=== PATIENT | female | born 1925 | race Caucasian/White ===

== ENCOUNTER 2016-09-28 08:26 | Inpatient (IN) | payer MEDICARE ==
[2016-09-28 09:46] LABS: HEMATOCRIT 41.2 % (36.0-47.0); HEMOGLOBIN 13.7 g/dL (12.0-15.5); HGB HCT DIFFERENCE -0.1; MEAN CORPUSCULAR HEMOGLOBIN 30.2 pg (27.0-33.4); MEAN CORPUSCULAR HGB CONC 33.3 g/dL (32.0-36.0); MEAN CORPUSCULAR VOLUME 91 fl (80-97); RED BLOOD COUNT 4.55 10^6/uL (3.72-5.28); RED CELL DISTRIBUTION WIDTH 13.7 % (11.5-14.0)
[2016-09-28 09:50] LABS: VENOUS BLOOD BASE EXCESS -1.2 mmol/L; VENOUS BLOOD HCO3 24.1 mmol/L (20-32); VENOUS BLOOD PCO2 42.3 mmHg (35-63); VENOUS BLOOD PH 7.37 (7.30-7.42)
[2016-09-28 09:52] LABS: PROTHROMBIN TIME 24.3 SEC (11.4-15.4)
--- NOTE | 2016-09-28 10:01 | EKG REPORT ---
SEVERITY:- ABNORMAL ECG - ATRIAL FIBRILLATION, V-RATE 97-183 VENTRICULAR PREMATURE COMPLEX RIGHT BUNDLE BRANCH BLOCK : Confirmed by: Jasvir Beltran 28-Sep-2016 10:00:52
[2016-09-28 10:08] LABS: ALANINE AMINOTRANSFERASE 31 U/L (9-52); ALBUMIN 3.7 g/dL (3.5-5.0); ALKALINE PHOSPHATASE 101 U/L (38-126); ANION GAP 12 (5-19); ASPARTATE AMINO TRANSFERASE 23 U/L (14-36); BILIRUBIN,DIRECT 0.2 mg/dL (0.0-0.4); BILIRUBIN,TOTAL 0.9 mg/dL (0.2-1.3); BLOOD UREA NITROGEN 27 mg/dL (7-20); CARBON DIOXIDE 25 mmol/L (22-30); CHLORIDE 104 mmol/L (98-107); CREATININE RESULT 0.62 mg/dL (0.52-1.25); GLUCOSE 138 mg/dL (75-110); POTASSIUM 4.2 mmol/L (3.6-5.0); SODIUM 140.8 mmol/L (137-145); TOTAL PROTEIN 6.5 g/dL (6.3-8.2)
[2016-09-28 10:11] LABS: BASOPHILS % (MANUAL) 0 % (0-2); EOSINOPHILS % (MANUAL) 0 % (0-6); LYMPHOCYTES % (MANUAL) 4 % (13-45); TOTAL CELLS COUNTED 100
[2016-09-28 10:12] LABS: HELMET CELLS SLIGHT; OVALOCYTES SLIGHT; POIKILOCYTOSIS 1+
[2016-09-28] MEDS ORDERED: NORMAL SALINE 1000 ML 1,000 ML IV ONE (10:19)
[2016-09-28] MEDS ORDERED: NORMAL SALINE 250 ML IV ONE (10:19)
[2016-09-28] MEDS ORDERED: ERTAPENEM SODIUM INJ 1 GM VIAL IV ONE (10:19)
--- NOTE | 2016-09-28 10:25 | ER Document Report ---
ED General - General Chief Complaint: Fall Stated Complaint: FALL;BODY PAIN Mode of Arrival: Medic Information source: Patient, Relative Notes: 82-year-old female history of dementia was found having rolled out of bed between 5:58 AM this morning. There are no guardrail is on the bed itself. Patient herself denies any specific complaints except for left hip pain. Patient always has chronic left hip pain. It is noted patient has been treated with 2 courses of antibiotics for urinary tract infection. TRAVEL OUTSIDE OF THE [place] IN LAST 30 DAYS: No - HPI Onset: Just prior to arrival Onset/Duration: Sudden Quality of pain: Achy Severity: Mild Pain Level: 1 Associated symptoms: Body/muscle aches Exacerbated by: Movement Relieved by: Denies Similar symptoms previously: Yes Recently seen / treated by doctor: Yes - Related Data Allergies/Adverse Reactions: Sulfa (Sulfonamide Antibiotics) Allergy (Verified 09/28/16 08:34) Past Medical History - Social History Smoking Status: Never Smoker Cigarette use (# per day): No Chew tobacco use (# tins/day): No Smoking Education Provided: No Frequency of alcohol use: None Drug Abuse: None Family History: Reviewed & Not Pertinent - Past Medical History Cardiac Medical History: Reports: Hx Atrial Fibrillation, Hx Hypertension Neurological Medical History: Reports: Hx Cerebrovascular Accident Musculoskeltal Medical History: Reports Hx Arthritis Psychiatric Medical History: Reports: Hx Dementia Traumatic Medical History: Reports: Hx Fractures Past Surgical History: Reports: Hx Orthopedic Surgery - left hip replaced - Immunizations Hx Diphtheria, Pertussis, Tetanus Vaccination: Yes - unknown date Review of Systems - Review of Systems Notes: REVIEW OF SYSTEMS: CONSTITUTIONAL : Denies fever, chills, or sweats. Denies recent illness. EENT: Denies eye, ear, throat, or mouth pain or symptoms. Denies nasal or sinus congestion or discharge. Denies throat, tongue, or mouth swelling or difficulty swallowing. CARDIOVASCULAR: Denies chest pain. Denies palpitations or racing or irregular heart beat. Denies ankle edema. RESPIRATORY: Denies cough, cold, or chest congestion. Denies shortness of breath, difficulty breathing, or wheezing. GASTROINTESTINAL: Denies abdominal pain or distention. Denies nausea, vomiting , or diarrhea. Denies blood in vomitus, stools, or per rectum. Denies black, tarry stools. Denies constipation. GENITOURINARY: Denies difficulty urinating, painful urination, burning, frequency, blood in urine, or discharge. FEMALE GENITOURINARY: Denies vaginal bleeding, heavy or abnormal periods, irregular periods. Denies vaginal discharge or odor. MUSCULOSKELETAL: Denies back or neck pain or stiffness. Denies joint pain or swelling. SKIN: Skin tears HEMATOLOGIC : Denies easy bruising or bleeding. LYMPHATIC: Denies swollen, enlarged glands. NEUROLOGICAL: Denies confusion or altered mental status. Denies passing out or loss of consciousness. Denies dizziness or lightheadedness. Denies headache. Denies weakness or paralysis or loss of use of either side. Denies problems with gait or speech. Denies sensory loss, numbness, or tingling. Denies seizures. PSYCHIATRIC: Denies anxiety or stress. Denies depression, suicidal ideation, or homicidal ideation. ALL OTHER SYSTEMS REVIEWED AND NEGATIVE. Dictation was performed using [employer] voice recognition software PHYSICAL EXAMINATION: GENERAL: Frail elderly female no acute distress HEAD: Atraumatic, normocephalic. EYES: Pupils equal round and reactive to light, extraocular movements intact, conjunctiva are normal. ENT: Nares patent, oropharynx clear without exudates. Moist mucous membranes. NECK: Normal range of motion, supple without lymphadenopathy LUNGS: Breath sounds clear to auscultation bilaterally and equal. No wheezes rales or rhonchi. HEART: Regular rate and rhythm without murmurs ABDOMEN: Soft, nontender, nondistended abdomen. No guarding, no rebound. No masses appreciated. Female : deferred Musculoskeletal: mild left hip pain NEUROLOGICAL: Cranial nerves grossly intact. Normal speech, normal gait. Normal sensory, motor exams PSYCH: Normal mood, normal affect. SKIN: Superficial skin tears bilateral elbows left worse than right Physical Exam - Vital signs Vitals: Resp Pulse Ox 18 112 H 09/28/16 08:32 09/28/16 08:32 Course - Re-evaluation Re-evalutation: 09/28/16 10:31 Patient is probably septic, she has been treated unsuccessfully for UTI. I will start the patient on antibiotics per microbiology reports, lab results pending 09/28/16 13:22 patient noted uti, already started on fluids, antibiotics, will admit ot the [facility] service - Vital Signs Vital signs: Temp Pulse Resp BP Pulse Ox 113 H 18 147/80 H 94 09/28/16 08:35 09/28/16 08:35 09/28/16 08:35 09/28/16 08:35 - Laboratory Result Diagrams: 09/28/16 09:30 09/28/16 09:30 Laboratory results interpreted by me: 09/28/16 09/28/16 09/28/16 09:30 09:30 09:30 WBC 16.0 H D Seg Neuts % (Manual) 91 H Lymphocytes % (Manual) 4 L Abs Neuts (Manual) 14.6 H PT 24.3 H BUN 27 H Glucose 138 H Lactic Acid Urine Ketones Urine Nitrite Ur Leukocyte Esterase 09/28/16 09/28/16 09:30 12:37 WBC Seg Neuts % (Manual) Lymphocytes % (Manual) Abs Neuts (Manual) PT BUN Glucose Lactic Acid 2.5 H Urine Ketones TRACE H Urine Nitrite POSITIVE H Ur Leukocyte Esterase TRACE H - Diagnostic Test Radiology reviewed: Image reviewed, Reports reviewed Critical Care Note - Critical Care Note Total time excluding time spent on procedures (mins): 37 Comments: 37 minutes of critical care time spent in direct contact evaluating and reevaluating the patient, treating symptoms, reviewing labs and studies and speaking with family and consultants excluding any procedures Discharge - Discharge Clinical Impression: Skin tear Sepsis Qualifiers: Sepsis type: sepsis due to unspecified organism Qualified Code(s): A41.9 - Sepsis, unspecified organism Urinary tract infection Qualifiers: Urinary tract infection type: acute cystitis Hematuria presence: without hematuria Qualified Code(s): N30.00 - Acute cystitis without hematuria Fall Qualifiers: Encounter type: initial encounter Qualified Code(s): W19.XXXA - Unspecified fall, initial encounter Condition: Stable Disposition: ADMITTED INPATIENT Admitting Provider: Hospitalist Unit Admitted: Telemetry
[2016-09-28] MEDS ORDERED: MORPHINE SULFATE 10 MG/ML INJ IV ONE (10:42)
[2016-09-28 11:03] LABS: CREATINE KINASE MB 1.55 ng/mL (<4.55)
[2016-09-28 11:04] LABS: TROPONIN I < 0.012 ng/mL
[2016-09-28 13:14] LABS: APPEARANCE,URINE CLEAR; BILIRUBIN,URINE NEGATIVE (NEGATIVE); GLUCOSE, URINE NEGATIVE (NEGATIVE); KETONES,URINE TRACE mg/dL (NEGATIVE); LEUKOCYTE ESTERASE,URINE TRACE (NEGATIVE); NITRITE,URINE POSITIVE (NEGATIVE); PROTEIN,URINE NEGATIVE (NEGATIVE); URINE SPECIFIC GRAVITY 1.009; UROBILINOGEN,URINE NEGATIVE mg/dL (<2.0)
[2016-09-28] MEDS ORDERED: ONDANSETRON HCL INJ/PF 4 MG/2 ML SDV IV PRN (15:56)
[2016-09-28] MEDS ORDERED: DILTIAZEM HCL 30 MG TABLET PO ONE (16:00)
--- NOTE | 2016-09-28 16:17 | PDOC H&P ---
History of Present Illness Admission Date/PCP: 09/28/16 13:38 KEREN RAMSEY MD Patient complains of: fall History of Present Illness: OPAL MAE is a 89 year old female, with history of advanced dementia, atrial fibrillation, frequent urinary tract infection, ESBL Escherichia coli urinary tract infection, brought to the hospital as she was found on the floor at home by her family. Due to underlying advanced dementia, the patient is unable to provide history. Information unobtainable from the patient. Information obtained, from her family, from the emergency room record, from old records in the hospital. Patient apparently was being brought by the family with their trips. They do not live in town and is in an RV. They were in [facility], apparently she was found on the floor in the RV without any loss in consciousness. Reportedly the patient is complaining of pain and therefore the patient was brought to the hospital. In the emergency room, the patient's heart rate was elevated, urinalysis was abnormal, lactic acid mildly elevated, she is hypothermic with a temperature of 96.2F The patient was given intravenous fluids, intravenous Invanz was given and patient was referred for admission. No other information available at this time. Past Medical History Cardiac Medical History: Reports: Atrial Fibrillation, Hypertension Neurological Medical History: Reports: Ischemic CVA Musculoskeltal Medical History: Reports: Arthritis Psychiatric Medical History: Reports: Dementia Infectious Medical History: Reports: Other - Recurrent UTI, ESBL Escherichia coli UTI Past Surgical History Past Surgical History: Reports: Orthopedic Surgery - left hip replaced Social History Lives with: Family Smoking Status: Never Smoker Frequency of Alcohol Use: None Hx Recreational Drug Use: No Drugs: None Family History Family History: Other - Unobtainable from the patient, unknown at this time Parental Family History Reviewed: No - unobtainable from the patient Children Family History Reviewed: Unknown Sibling(s) Family History Reviewed.: Unknown Medication/Allergy Home Medications: Diltiazem HCl [Cartia Xt] 180 mg PO DAILY 09/28/16 Lisinopril [Prinivil 5 mg Tablet] 5 mg PO DAILY 09/28/16 Warfarin Sodium [Coumadin 1 mg Tablet] 1.5 mg PO TUTHSA@219909/28/16 Warfarin Sodium [Coumadin 1 mg Tablet] 2 mg PO SUMOWEFR@219909/28/16 Allergies/Adverse Reactions: Sulfa (Sulfonamide Antibiotics) Allergy (Verified 09/28/16 14:33) Review of Systems ROS unobtainable: Due to mental status Integumentary: PRESENT: other - Staff reports no decubitus ulcers but redness on the buttocks Physical Exam Vital Signs: Temp Pulse Resp BP Pulse Ox 96.8 F L 113 H 16 113/62 96 09/28/16 13:41 09/28/16 08:35 09/28/16 13:04 09/28/16 13:04 09/28/16 13:04 General appearance: PRESENT: no acute distress, thin Head exam: PRESENT: atraumatic, normocephalic Eye exam: PRESENT: conjunctiva pink, EOMI, PERRLA - Sluggish. ABSENT: scleral icterus Ear exam: PRESENT: normal external ear exam. ABSENT: drainage Mouth exam: PRESENT: dry mucosa, tongue midline, other - Neck contracted Teeth exam: PRESENT: other - Dental prostheses Throat exam: ABSENT: post pharyngeal erythema, tonsillar erythema Neck exam: ABSENT: carotid bruit, JVD, lymphadenopathy, thyromegaly Respiratory exam: PRESENT: clear to auscultation chil[place] - Poor inspiratory and expiratory effort. ABSENT: rales, rhonchi, wheezes Cardiovascular exam: PRESENT: irregular rhythm, +S1, +S2, tachycardia. ABSENT: diastolic murmur, gallop, rubs, systolic murmur Pulses: PRESENT: normal dorsalis pedis pul Vascular exam: PRESENT: normal capillary refill GI/Abdominal exam: PRESENT: hypoactive bowel sounds, soft, tenderness - Mild discomfort diffusely. ABSENT: distended, guarding, mass, organolmegaly, rebound Rectal exam: PRESENT: deferred Extremities exam: PRESENT: other - Trace lower extremity edema, contraction deformity noted. ABSENT: calf tenderness, clubbing Neurological exam: PRESENT: alert, awake, other - Occasionally able to follow command Psychiatric exam: ABSENT: agitated Focused psych exam: ABSENT: restlessness Skin exam: PRESENT: dry, warm, other - Multiple bruises and ecchymosis both upper extremity. ABSENT: cyanosis, rash Results Laboratory Results: 09/28/16 13:57 Lactic Acid 2.0 Impressions: Chest X-Ray 09/28/16 09:04 IMPRESSION: COPD. NO ACUTE RADIOGRAPHIC FINDING IN THE CHEST. Hip X-Ray 09/28/16 09:04 IMPRESSION: No acute findings. Knee X-Ray 09/28/16 10:25 IMPRESSION: NO RADIOGRAPHIC EVIDENCE OF ACUTE INJURY. Assessment & Plan - Diagnosis (1) Sepsis Qualifiers: Sepsis type: sepsis due to unspecified organism Qualified Code(s): A41.9 - Sepsis, unspecified organism Is this a current diagnosis for this admission?: Yes (2) UTI (urinary tract infection) Qualifiers: Urinary tract infection type: acute cystitis Hematuria presence: without hematuria Qualified Code(s): N30.00 - Acute cystitis without hematuria Is this a current diagnosis for this admission?: Yes (3) Atrial fibrillation with RVR Is this a current diagnosis for this admission?: Yes (4) Warfarin-induced coagulopathy Is this a current diagnosis for this admission?: Yes (5) Essential hypertension Is this a current diagnosis for this admission?: Yes (6) Dementia Qualifiers: Dementia type: unspecified type Dementia behavioral disturbance: without behavioral disturbance Qualified Code(s): F03.90 - Unspecified dementia without behavioral disturbance Is this a current diagnosis for this admission?: Yes (7) Osteoarthritis Qualifiers: Osteoarthritis location: unspecified site Osteoarthritis type: unspecified Qualified Code(s): M19.90 - Unspecified osteoarthritis, unspecified site Is this a current diagnosis for this admission?: Yes (8) History of stroke Is this a current diagnosis for this admission?: Yes - Time Time Spent: 50 to 70 Minutes - Inpatient Certification Based on my medical assessment, after consideration of the patient's comorbidities, presenting symptoms, or acuity I expect that the services needed warrant INPATIENT care.: Yes I certify that my determination is in accordance with my understanding of Medicare's requirements for reasonable and necessary INPATIENT services [42 CFR 412.3e].: Yes Medical Necessity: Significant Comorbidiites Make Outpatient Treatment Too Risky , Need For IV Fluids, Need for IV Antibiotics, Risk of Complication if Not Cared For in Hospital Post Hospital Care: D/C Last Puller Documentation - Plan Summary Plan Summary: We will admit the patient to telemetry. We will hydrate the patient with normal saline, I will continue the Cardizem but decrease the dose. Continue anticoagulation and monitor PT/INR. Culture of the blood and urine. Begin intravenous antibiotics with Invanz. We will check a B12 level, as well as thyroid function test. Further dosing depends on initial evaluation as outlined above. Apply barrier cream to the skin and apply decubitus precautions.
[2016-09-28] MEDS: DOCUSATE SODIUM 100 MG CAPSULE PO SCH (18:48)
[2016-09-28] MEDS ORDERED: ERTAPENEM SODIUM INJ 1 GM VIAL ONE (18:59)
[2016-09-28] MEDS ORDERED: NORMAL SALINE 500 ML IV ONE (19:00)
[2016-09-28] MEDS: ERTAPENEM SODIUM 1 GM in NORMAL SALINE 50 ML IV SCH (19:13)
[2016-09-28] MEDS: ACETAMINOPHEN 325 MG TABLET PO PRN (20:00)
[2016-09-28] MEDS: DILTIAZEM HCL 30 MG TABLET PO SCH (20:03)
[2016-09-28] MEDS: NORMAL SALINE 1000 ML 1,000 ML IV PRN (22:09)
[2016-09-28] MEDS: WARFARIN SODIUM 2 MG TABLET PO SCH (22:46)
[2016-09-29] MEDS: DILTIAZEM HCL 30 MG TABLET PO SCH ×4 (03:22→22:29)
[2016-09-29] MEDS: LANSOPRAZOLE 30 MG TAB.RAP.DR PO SCH (05:38)
[2016-09-29 07:41] LABS: HEMATOCRIT 33.8 % (36.0-47.0); HEMOGLOBIN 11.7 g/dL (12.0-15.5); HGB HCT DIFFERENCE 1.3; MEAN CORPUSCULAR HEMOGLOBIN 30.9 pg (27.0-33.4); MEAN CORPUSCULAR HGB CONC 34.5 g/dL (32.0-36.0); MEAN CORPUSCULAR VOLUME 90 fl (80-97); RED BLOOD COUNT 3.77 10^6/uL (3.72-5.28); RED CELL DISTRIBUTION WIDTH 13.7 % (11.5-14.0); WHITE BLOOD COUNT 9.2 10^3/uL (4.0-10.5)
[2016-09-29 08:18] LABS: ANION GAP 8 (5-19); BLOOD UREA NITROGEN 25 mg/dL (7-20); CALCIUM 7.9 mg/dL (8.4-10.2); CARBON DIOXIDE 22 mmol/L (22-30); CHLORIDE 112 mmol/L (98-107); GLUCOSE 79 mg/dL (75-110); POTASSIUM 3.8 mmol/L (3.6-5.0); SODIUM 141.9 mmol/L (137-145)
[2016-09-29 08:52] LABS: PROTHROMBIN TIME 44.4 SEC (11.4-15.4)
[2016-09-29] MEDS: ACETAMINOPHEN 325 MG TABLET PO PRN (09:00)
[2016-09-29] MEDS: NORMAL SALINE 1000 ML 1,000 ML IV PRN ×2 (09:08→22:48)
[2016-09-29] MEDS: DOCUSATE SODIUM 100 MG CAPSULE PO SCH ×2 (09:11→18:08)
[2016-09-29 09:17] LABS: THYROID STIMULATING HORMONE < 0.02 uIU/mL (0.47-4.68)
--- NOTE | 2016-09-29 09:49 | PDOC PROGRESS REPORT ---
Subjective Progress Note for:: 09/29/16 Subjective:: Patient is less agitated today. Tachycardia improved. No reported temperature spikes, respiratory distress, diarrhea. Heart rate still uncontrolled but improved. Patient with advanced dementia. Physical Exam Vital Signs: Temp Pulse Resp BP Pulse Ox 97.9 F 102 H 19 115/69 97 09/29/16 07:28 09/29/16 07:28 09/29/16 07:28 09/29/16 07:28 09/29/16 07:28 Intake & Output 09/28/16 09/29/16 09/30/16 06:59 06:59 06:59 Intake Total 1044 Output Total 500 Balance 544 Weight 53 kg General appearance: PRESENT: no acute distress, thin Head exam: PRESENT: normocephalic Eye exam: PRESENT: EOMI Mouth exam: PRESENT: moist, neck supple Neck exam: ABSENT: JVD Respiratory exam: PRESENT: clear to auscultation chilango. ABSENT: rhonchi, wheezes Cardiovascular exam: PRESENT: irregular rhythm. ABSENT: gallop GI/Abdominal exam: PRESENT: soft. ABSENT: tenderness Extremities exam: ABSENT: pedal edema Neurological exam: PRESENT: alert, awake Skin exam: PRESENT: dry, warm. ABSENT: cyanosis Results Laboratory Results: 09/29/16 06:44 09/29/16 06:44 09/29/16 09/29/16 09/29/16 06:44 06:44 06:44 WBC 9.2 RBC 3.77 Hgb 11.7 L Hct 33.8 L MCV 90 MCH 30.9 MCHC 34.5 RDW 13.7 Plt Count 169 Sodium 141.9 Potassium 3.8 Chloride 112 H Carbon Dioxide 22 Anion Gap 8 BUN 25 H Creatinine 0.60 Est GFR ( Amer) > 60 Est GFR (Non-Af Amer) > 60 Glucose 79 Calcium 7.9 L Vitamin B12 637.0 TSH < 0.02 L Free T4 2.41 H Impressions: Chest X-Ray 09/28/16 09:04 IMPRESSION: COPD. NO ACUTE RADIOGRAPHIC FINDING IN THE CHEST. Hip X-Ray 09/28/16 09:04 IMPRESSION: No acute findings. Knee X-Ray 09/28/16 10:25 IMPRESSION: NO RADIOGRAPHIC EVIDENCE OF ACUTE INJURY. Assessment & Plan - Diagnosis (1) Sepsis Qualifiers: Sepsis type: sepsis due to unspecified organism Qualified Code(s): A41.9 - Sepsis, unspecified organism Is this a current diagnosis for this admission?: Yes (2) UTI (urinary tract infection) Qualifiers: Urinary tract infection type: acute cystitis Hematuria presence: without hematuria Qualified Code(s): N30.00 - Acute cystitis without hematuria Is this a current diagnosis for this admission?: Yes (3) Atrial fibrillation with RVR Is this a current diagnosis for this admission?: Yes (4) Warfarin-induced coagulopathy Is this a current diagnosis for this admission?: Yes (5) Essential hypertension Is this a current diagnosis for this admission?: Yes (6) Dementia Qualifiers: Dementia type: unspecified type Dementia behavioral disturbance: without behavioral disturbance Qualified Code(s): F03.90 - Unspecified dementia without behavioral disturbance Is this a current diagnosis for this admission?: Yes (7) Osteoarthritis Qualifiers: Osteoarthritis location: unspecified site Osteoarthritis type: unspecified Qualified Code(s): M19.90 - Unspecified osteoarthritis, unspecified site Is this a current diagnosis for this admission?: Yes (8) History of stroke Is this a current diagnosis for this admission?: Yes - Time Time Spent with patient: 25-34 minutes - Plan Summary Plan Summary: Continue current antibiotics, gentle hydration. We will begin metoprolol, continue Cardizem, discontinue lisinopril. INR is supratherapeutic, we will hold Coumadin, recheck PT/INR in the morning. Continue supportive care.
[2016-09-29] MEDS ORDERED: ERTAPENEM SODIUM INJ 1 GM VIAL IV SCH (10:00)
[2016-09-29] MEDS ORDERED: METOPROLOL TARTRATE 25 MG TABLET PO SCH (10:00)
[2016-09-29] MEDS ORDERED: PROPRANOLOL HCL 10 MG TABLET PO ONE (11:45)
[2016-09-29] MEDS: PROPRANOLOL HCL 10 MG TABLET PO SCH ×2 (14:30→22:30)
[2016-09-29] MEDS: ERTAPENEM SODIUM 1 GM in NORMAL SALINE 50 ML IV SCH (18:08)
[2016-09-30] MEDS: DILTIAZEM HCL 30 MG TABLET PO SCH ×2 (03:51→09:08)
[2016-09-30 05:00] LABS: APPEARANCE,URINE TURBID; BILIRUBIN,URINE NEGATIVE (NEGATIVE); CALCIUM OXALATE CRYSTALS,URINE MANY /HPF; GLUCOSE, URINE NEGATIVE (NEGATIVE); KETONES,URINE TRACE mg/dL (NEGATIVE); LEUKOCYTE ESTERASE,URINE LARGE (NEGATIVE); NITRITE,URINE NEGATIVE (NEGATIVE); PROTEIN,URINE NEGATIVE (NEGATIVE); URINE SPECIFIC GRAVITY 1.009; UROBILINOGEN,URINE NEGATIVE mg/dL (<2.0)
[2016-09-30 05:46] LABS: HEMATOCRIT 36.6 % (36.0-47.0); HEMOGLOBIN 12.4 g/dL (12.0-15.5); HGB HCT DIFFERENCE 0.6; MEAN CORPUSCULAR HEMOGLOBIN 30.4 pg (27.0-33.4); MEAN CORPUSCULAR HGB CONC 33.9 g/dL (32.0-36.0); MEAN CORPUSCULAR VOLUME 90 fl (80-97); RED BLOOD COUNT 4.08 10^6/uL (3.72-5.28); RED CELL DISTRIBUTION WIDTH 13.9 % (11.5-14.0); WHITE BLOOD COUNT 11.5 10^3/uL (4.0-10.5)
[2016-09-30] MEDS: PROPRANOLOL HCL 10 MG TABLET PO SCH ×3 (05:46→22:01)
[2016-09-30] MEDS: LANSOPRAZOLE 30 MG TAB.RAP.DR PO SCH (05:46)
[2016-09-30 06:35] LABS: PROTHROMBIN TIME 47.3 SEC (11.4-15.4)
[2016-09-30] MEDS: DOCUSATE SODIUM 100 MG CAPSULE PO SCH ×2 (09:08→17:01)
[2016-09-30] MEDS: NORMAL SALINE 1000 ML 1,000 ML IV PRN (09:09)
[2016-09-30] MEDS: ACETAMINOPHEN 325 MG TABLET PO PRN ×2 (09:15→17:04)
[2016-09-30] MEDS ORDERED: NORMAL SALINE 1000 ML 1,000 ML IV PRN (09:23)
--- NOTE | 2016-09-30 09:28 | PDOC PROGRESS REPORT ---
Subjective Progress Note for:: 09/30/16 Subjective:: More awake and alert. Reportedly more responsive. No diarrhea, nausea or vomiting, temperature spikes, nor respiratory distress. Patient reportedly has left hip pain. Recent x-ray was negative for fracture. Patient also has rib pain on the left. Physical Exam Vital Signs: Temp Pulse Resp BP Pulse Ox 98.4 F 89 18 139/68 H 96 09/30/16 08:24 09/30/16 08:24 09/30/16 08:24 09/30/16 08:24 09/30/16 08:24 Intake & Output 09/29/16 09/30/16 10/01/16 06:59 06:59 06:59 Intake Total 1044 2646 Output Total 500 950 Balance 544 1696 Weight 53 kg 53.1 kg General appearance: PRESENT: no acute distress, cooperative Head exam: PRESENT: normocephalic Eye exam: PRESENT: EOMI Mouth exam: PRESENT: dry mucosa, neck supple - Contracted Neck exam: ABSENT: JVD Respiratory exam: PRESENT: clear to auscultation chilango - Anteriorly, unlabored, other - Poor effort. ABSENT: rhonchi, wheezes Cardiovascular exam: PRESENT: irregular rhythm. ABSENT: gallop GI/Abdominal exam: PRESENT: soft. ABSENT: distended Extremities exam: PRESENT: other - Contracted lower extremity on the ankle and feet bilaterally. ABSENT: pedal edema Neurological exam: PRESENT: alert, awake Skin exam: PRESENT: dry, warm. ABSENT: cyanosis Results Laboratory Results: 09/30/16 05:15 09/29/16 06:44 09/30/16 09/30/16 04:22 05:15 WBC 11.5 H RBC 4.08 Hgb 12.4 Hct 36.6 MCV 90 MCH 30.4 MCHC 33.9 RDW 13.9 Plt Count 189 Urine Color YELLOW Urine Appearance TURBID Urine pH 6.0 Ur Specific [place] 1.009 Urine Protein NEGATIVE Urine Glucose (UA) NEGATIVE Urine Ketones TRACE H Urine Blood MODERATE H Urine Nitrite NEGATIVE Ur Leukocyte Esterase LARGE H Urine WBC (Auto) >182 Urine RBC (Auto) 92 09/28/16 20:33 Nasophary (Mrsa Only) MRSA Surveillance Culture - Final NO MRSA RECOVERED Impressions: Chest X-Ray 09/28/16 09:04 IMPRESSION: COPD. NO ACUTE RADIOGRAPHIC FINDING IN THE CHEST. Hip X-Ray 09/28/16 09:04 IMPRESSION: No acute findings. Knee X-Ray 09/28/16 10:25 IMPRESSION: NO RADIOGRAPHIC EVIDENCE OF ACUTE INJURY. Thyroid Ultrasound 09/29/16 00:00 IMPRESSION: 1. Right lobe of the thyroid gland is not visualized. 2. Extremely heterogeneous left lobe of the thyroid gland. A discrete mass is not identified. Assessment & Plan - Diagnosis (1) Sepsis Qualifiers: Sepsis type: sepsis due to unspecified organism Qualified Code(s): A41.9 - Sepsis, unspecified organism Is this a current diagnosis for this admission?: Yes (2) UTI (urinary tract infection) Qualifiers: Urinary tract infection type: acute cystitis Hematuria presence: without hematuria Qualified Code(s): N30.00 - Acute cystitis without hematuria Is this a current diagnosis for this admission?: Yes (3) Atrial fibrillation with RVR Is this a current diagnosis for this admission?: Yes (4) Hyperthyroidism Is this a current diagnosis for this admission?: Yes (5) Warfarin-induced coagulopathy Is this a current diagnosis for this admission?: Yes (6) Essential hypertension Is this a current diagnosis for this admission?: Yes (7) Dementia Qualifiers: Dementia type: unspecified type Dementia behavioral disturbance: without behavioral disturbance Qualified Code(s): F03.90 - Unspecified dementia without behavioral disturbance Is this a current diagnosis for this admission?: Yes (8) Osteoarthritis Qualifiers: Osteoarthritis location: unspecified site Osteoarthritis type: unspecified Qualified Code(s): M19.90 - Unspecified osteoarthritis, unspecified site Is this a current diagnosis for this admission?: Yes (9) History of stroke Is this a current diagnosis for this admission?: Yes - Time Time Spent with patient: 25-34 minutes - Plan Summary Plan Summary: Heart rate is better controlled. I will resume the patient's home dose of Cardizem and discontinue every 6 hours Cardizem. In the meantime Inderal added to the treatment for elevated free T4. Ultrasound of the thyroid is nondiagnostic. We will continue to monitor. Continue current antibiotics, awaiting culture of the urine. History of ESBL. Continue to hold warfarin, recheck PT/INR in the morning. Obtain a rib x-ray on the left.
[2016-09-30] MEDS ORDERED: (PENDING PHARMACY ID) (Diltiazem Hcl [Cartia Xt] 180 MG) PO SCH (10:00)
[2016-09-30] MEDS: DILTIAZEM HCL 180 MG CAPSULE.CR PO SCH (10:22)
[2016-09-30] MEDS: ERTAPENEM SODIUM 1 GM in NORMAL SALINE 50 ML IV SCH (17:01)
[2016-10-01] MEDS: LANSOPRAZOLE 30 MG TAB.RAP.DR PO SCH (05:53)
[2016-10-01] MEDS: PROPRANOLOL HCL 10 MG TABLET PO SCH ×3 (05:53→23:32)
[2016-10-01] MEDS: DILTIAZEM HCL 180 MG CAPSULE.CR PO SCH ×2 (09:32→21:41)
[2016-10-01] MEDS: DOCUSATE SODIUM 100 MG CAPSULE PO SCH ×2 (09:33→17:11)
[2016-10-01] MEDS: ACETAMINOPHEN 325 MG TABLET PO PRN (09:33)
[2016-10-01] MEDS ORDERED: METOPROLOL TARTRATE PF/INJ 5 MG/5 ML SDV IV PRN (13:41)
[2016-10-01] MEDS ORDERED: LIDOCAINE 5% (700 MG) TRANSDERMAL ADH..PATCH TP ONE (14:30)
[2016-10-01] MEDS: TRAMADOL HCL 50 MG TABLET PO PRN (17:11)
[2016-10-01] MEDS: LACTOBACILLUS ACIDOPHILUS 250 MG TAB PO SCH (17:11)
[2016-10-01] MEDS: ERTAPENEM SODIUM 1 GM in NORMAL SALINE 50 ML IV SCH (17:12)
--- NOTE | 2016-10-01 20:12 | PDOC PROGRESS REPORT ---
Subjective Progress Note for:: 10/01/16 Subjective:: Patient seen earlier today on morning rounds. Patient appears to be a phasic at baseline but answers yes and no by shaking her head somewhat appropriately. Unable to obtain review of systems secondary to this. Physical Exam Vital Signs: Temp Pulse Resp BP Pulse Ox 98.2 F 98 19 132/56 H 92 10/01/16 19:33 10/01/16 19:33 10/01/16 19:33 10/01/16 19:33 10/01/16 19:33 Intake & Output 09/30/16 10/01/16 10/02/16 06:59 06:59 06:59 Intake Total 2646 2249 430 Output Total 950 700 500 Balance 1696 1549 -70 Weight 53.1 kg 57.2 kg Exam: General: Awake alert and tracks, nontender response, no acute respiratory distress HEENT: AT/NC, PERRL, EOMI, oropharynx is moist, pink, no scleral icterus, no conjunctival injection Neck: No JVD, trachea midline, thyromegaly Chest: Clear to auscultation bilaterally, no wheezes rhonchi or rales CV: IRR, normal S1 and S2, no murmur, rub, or gallop Abdomen: Soft, tender to palpation left lower quadrant, mildly distended, diminished bowel sounds; no rebound, rigidity, or guarding Extremities: No cyanosis, clubbing or edema, left lower extremity pain Neuro: Aphasic, other cranial nerves appear to be intact Results Laboratory Results: 09/30/16 05:15 09/29/16 06:44 10/01/16 16:30 Stool Occult Blood NEGATIVE Impressions: Chest X-Ray 09/28/16 09:04 IMPRESSION: COPD. NO ACUTE RADIOGRAPHIC FINDING IN THE CHEST. Hip X-Ray 09/28/16 09:04 IMPRESSION: No acute findings. Knee X-Ray 09/28/16 10:25 IMPRESSION: NO RADIOGRAPHIC EVIDENCE OF ACUTE INJURY. Thyroid Ultrasound 09/29/16 00:00 IMPRESSION: 1. Right lobe of the thyroid gland is not visualized. 2. Extremely heterogeneous left lobe of the thyroid gland. A discrete mass is not identified. Ribs w/Chest X-Ray 09/30/16 00:00 IMPRESSION: Trace bilateral pleural effusions with bibasilar airspace disease, atelectasis versus pneumonia. Bones are profoundly osteoporotic. No displaced left rib fractures are identified. The left chest wall air or pneumothorax. Probably chronic compression deformities at T12 and L2. Pelvis CT 10/01/16 00:00 IMPRESSION: No acute displaced fracture identified. Because there is hardware and severe osteoporosis, pelvic fracture or fracture along the proximal femur could be missed. Please consider bone scan for further evaluation Venous Doppler Study 10/01/16 00:00 IMPRESSION: NO EVIDENCE OF DVT OR SVT IN THE LEFT LEG. Assessment & Plan - Diagnosis (1) Sepsis Qualifiers: Sepsis type: sepsis due to unspecified organism Qualified Code(s): A41.9 - Sepsis, unspecified organism Is this a current diagnosis for this admission?: YesPlan: Likely secondary to urinary tract infection. Patient is found to have ESBL Escherichia coli in the urine. (2) Left leg pain Is this a current diagnosis for this admission?: YesPlan: Concern that this may be secondary to a fractured hip. Patient had a negative plain film and will obtain a CT of the pelvis. Patient appears to have some left lower quadrant tenderness and that should capture this area of film. (3) Abdominal pain Qualifiers: Abdominal location: left lower quadrant Qualified Code(s): R10.32 - Left lower quadrant pain Is this a current diagnosis for this admission?: YesPlan: Suspect constipation patient is receiving a pelvic ct (4) Atrial fibrillation with RVR Is this a current diagnosis for this admission?: YesPlan: Currently rate controlled. Secondary to hyperthyroidism. Continue Inderal and have increased patient's Cardizem. (5) Dementia Qualifiers: Dementia type: unspecified type Dementia behavioral disturbance: without behavioral disturbance Qualified Code(s): F03.90 - Unspecified dementia without behavioral disturbance Is this a current diagnosis for this admission?: YesPlan: Continue supportive care (6) Essential hypertension Is this a current diagnosis for this admission?: YesPlan: Have increased diltiazem and Inderal. (7) History of stroke Is this a current diagnosis for this admission?: Yes (8) Hyperthyroidism Is this a current diagnosis for this admission?: YesPlan: We'll recheck free T3 and free T4 in a.m. and consider methimazole. (9) Osteoarthritis Qualifiers: Osteoarthritis location: unspecified site Osteoarthritis type: unspecified Qualified Code(s): M19.90 - Unspecified osteoarthritis, unspecified site Is this a current diagnosis for this admission?: YesPlan: We'll place patient on tramadol (10) UTI (urinary tract infection) Qualifiers: Urinary tract infection type: acute cystitis Hematuria presence: without hematuria Qualified Code(s): N30.00 - Acute cystitis without hematuria Is this a current diagnosis for this admission?: YesPlan: Patient with ESBL Escherichia coli. On Invanz. (11) Warfarin-induced coagulopathy Is this a current diagnosis for this admission?: YesPlan: Continue to hold warfarin. Patient is still coagulopathic - Time Time Spent with patient: 25-34 minutes Medications reviewed and adjusted accordingly: Yes
[2016-10-01] MEDS ORDERED: MINERAL OIL ENEMA 133 ML PR ONE (21:30)
[2016-10-01] MEDS: SENNOSIDES/DOCUSATE 8.6-50 MG 1 EACH TABLET PO SCH (21:41)
[2016-10-02 05:09] LABS: PROTHROMBIN TIME 24.6 SEC (11.4-15.4)
[2016-10-02] MEDS: PROPRANOLOL HCL 10 MG TABLET PO SCH ×3 (05:09→18:25)
[2016-10-02] MEDS: LANSOPRAZOLE 30 MG TAB.RAP.DR PO SCH (05:09)
[2016-10-02 05:10] LABS: ABSOLUTE BASOPHILS # (AUTO) 0.1 10^3/uL (0.0-0.2); ABSOLUTE EOSINOPHILS # (AUTO) 0.2 10^3/uL (0.0-0.6); ABSOLUTE LYMPHOCYTES (AUTO) 0.8 10^3/uL (0.5-4.7); ABSOLUTE MONOCYTES (AUTO) 0.8 10^3/uL (0.1-1.4); ABSOLUTE NEUT (AUTO) 10.4 10^3/uL (1.7-8.2); BASOPHILS % (AUTO) 0.7 % (0-2); EOSINOPHILS % (AUTO) 1.2 % (0-6); HEMATOCRIT 34.5 % (36.0-47.0); HEMOGLOBIN 11.9 g/dL (12.0-15.5); HGB HCT DIFFERENCE 1.2; LYMPHOCYTES % (AUTO) 6.4 % (13-45); MEAN CORPUSCULAR HEMOGLOBIN 30.5 pg (27.0-33.4); MEAN CORPUSCULAR HGB CONC 34.4 g/dL (32.0-36.0); MEAN CORPUSCULAR VOLUME 89 fl (80-97); MONOCYTES % (AUTO) 6.8 % (3-13); RED CELL DISTRIBUTION WIDTH 14.3 % (11.5-14.0); SEGMENTED NEUTROPHILS % (AUTO) 84.9 % (42-78); WHITE BLOOD COUNT 12.3 10^3/uL (4.0-10.5)
[2016-10-02 05:23] LABS: ANION GAP 9 (5-19); BLOOD UREA NITROGEN 30 mg/dL (7-20); CALCIUM 8.2 mg/dL (8.4-10.2); CARBON DIOXIDE 23 mmol/L (22-30); CHLORIDE 112 mmol/L (98-107); CREATININE RESULT 0.62 mg/dL (0.52-1.25); GLUCOSE 141 mg/dL (75-110); POTASSIUM 4.5 mmol/L (3.6-5.0)
[2016-10-02 05:24] LABS: MAGNESIUM 1.6 mg/dL (1.6-2.3)
[2016-10-02 05:39] LABS: FREE T3 5.43 pg/mL (2.77-5.27)
[2016-10-02] MEDS: MAGNESIUM SULFATE/D5W 1 GM/100 ML RTUPB IV SCH ×2 (08:50→09:58)
[2016-10-02] MEDS: MEGESTROL ACETATE SUSP 400 MG/10 ML UDCUP PO SCH (09:00)
[2016-10-02] MEDS: DOCUSATE SODIUM 100 MG CAPSULE PO SCH ×2 (09:00→18:22)
[2016-10-02] MEDS: LACTOBACILLUS ACIDOPHILUS 250 MG TAB PO SCH ×2 (09:00→18:25)
[2016-10-02] MEDS: DILTIAZEM HCL 180 MG CAPSULE.CR PO SCH ×2 (09:00→22:13)
[2016-10-02] MEDS: MINERAL OIL ENEMA 133 ML PR SCH ×2 (09:01→18:23)
[2016-10-02] MEDS: LIDOCAINE 5% (700 MG) TRANSDERMAL ADH..PATCH TP SCH (09:01)
[2016-10-02] MEDS: NORMAL SALINE 1000 ML 1,000 ML IV PRN (09:02)
[2016-10-02] MEDS: METHIMAZOLE 5 MG TABLET PO SCH ×2 (09:57→18:21)
[2016-10-02] MEDS: TRAMADOL HCL 50 MG TABLET PO PRN (10:04)
[2016-10-02] MEDS ORDERED: POLYETHYLENE GLYCOL 3350 POWDER 17 GM/1 PACKET PO PRN (11:55)
--- NOTE | 2016-10-02 18:11 | PDOC PROGRESS REPORT ---
Subjective Progress Note for:: 10/02/16 Subjective:: Patient seen earlier today on morning rounds. Patient sleepy and nonverbal at this time. Friend Present at bedside reveals that she normally does speak. She reports that this has been a relatively new development since her illness. Unable to obtain review of systems secondary to this. Physical Exam Vital Signs: Temp Pulse Resp BP Pulse Ox 97.5 F 73 17 108/55 L 93 10/02/16 15:55 10/02/16 15:55 10/02/16 15:55 10/02/16 15:55 10/02/16 15:55 Intake & Output 10/01/16 10/02/16 10/03/16 06:59 06:59 06:59 Intake Total 2249 670 Output Total 700 500 Balance 1549 170 Weight 57.2 kg 57.9 kg Exam: General: Lethargic but arousable, no acute respiratory distress HEENT: AT/NC, PERRL, EOMI, oropharynx is moist, pink, no scleral icterus, no conjunctival injection Neck: No JVD, trachea midline, thyromegaly Chest: Clear to auscultation bilaterally, no wheezes rhonchi or rales CV: IRR, normal S1 and S2, no murmur, rub, or gallop Abdomen: Soft, mildly tender to palpation left lower quadrant, not distended, active bowel sounds; no rebound, rigidity, or guarding Extremities: No cyanosis, clubbing or edema, Neuro: Aphasic, other cranial nerves appear to be intact Results Laboratory Results: 10/02/16 04:15 10/02/16 04:15 10/02/16 10/02/16 10/02/16 04:15 04:15 04:15 WBC 12.3 H RBC 3.90 Hgb 11.9 L Hct 34.5 L MCV 89 MCH 30.5 MCHC 34.4 RDW 14.3 H Plt Count 218 Seg Neutrophils % 84.9 H Lymphocytes % 6.4 L Monocytes % 6.8 Eosinophils % 1.2 Basophils % 0.7 Absolute Neutrophils 10.4 H Absolute Lymphocytes 0.8 Absolute Monocytes 0.8 Absolute Eosinophils 0.2 Absolute Basophils 0.1 Sodium 144.0 Potassium 4.5 Chloride 112 H Carbon Dioxide 23 Anion Gap 9 BUN 30 H Creatinine 0.62 Est GFR ( Amer) > 60 Est GFR (Non-Af Amer) > 60 Glucose 141 H Calcium 8.2 L Magnesium 1.6 Prealbumin 8.0 L Free T4 2.73 H Free T3 pg/mL 5.43 H Impressions: Chest X-Ray 09/28/16 09:04 IMPRESSION: COPD. NO ACUTE RADIOGRAPHIC FINDING IN THE CHEST. Hip X-Ray 09/28/16 09:04 IMPRESSION: No acute findings. Knee X-Ray 09/28/16 10:25 IMPRESSION: NO RADIOGRAPHIC EVIDENCE OF ACUTE INJURY. Thyroid Ultrasound 09/29/16 00:00 IMPRESSION: 1. Right lobe of the thyroid gland is not visualized. 2. Extremely heterogeneous left lobe of the thyroid gland. A discrete mass is not identified. Ribs w/Chest X-Ray 09/30/16 00:00 IMPRESSION: Trace bilateral pleural effusions with bibasilar airspace disease, atelectasis versus pneumonia. Bones are profoundly osteoporotic. No displaced left rib fractures are identified. The left chest wall air or pneumothorax. Probably chronic compression deformities at T12 and L2. Pelvis CT 10/01/16 00:00 IMPRESSION: No acute displaced fracture identified. Because there is hardware and severe osteoporosis, pelvic fracture or fracture along the proximal femur could be missed. Please consider bone scan for further evaluation Venous Doppler Study 10/01/16 00:00 IMPRESSION: NO EVIDENCE OF DVT OR SVT IN THE LEFT LEG. Assessment & Plan - Diagnosis (1) Hyperthyroidism Is this a current diagnosis for this admission?: YesPlan: Patient's free T3 and free T4 remains markedly elevated. Have initiated patient on methimazole. Suspect this is one of the many reason for patient's altered mental status (2) Sepsis Qualifiers: Sepsis type: Escherichia coli Qualified Code(s): A41.51 - Sepsis due to Escherichia coli [E. coli] Is this a current diagnosis for this admission?: YesPlan: Likely secondary to urinary tract infection. Patient is found to have ESBL Escherichia coli in the urine. (3) UTI (urinary tract infection) Qualifiers: Urinary tract infection type: acute cystitis Hematuria presence: without hematuria Qualified Code(s): N30.00 - Acute cystitis without hematuria Is this a current diagnosis for this admission?: YesPlan: Patient with ESBL Escherichia coli. On Invanz day #4 (4) Left leg pain Is this a current diagnosis for this admission?: YesPlan: CT of the pelvis does not reveal any acute fracture. Ultrasound reveals no DVT. 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 Have placed tramadol and Lidoderm. (5) Atrial fibrillation with RVR Is this a current diagnosis for this admission?: YesPlan: Currently rate controlled. Secondary to hyperthyroidism. Continue Inderal and have increased patient's Cardizem. Improved control today. (6) Dementia Qualifiers: Dementia type: unspecified type Dementia behavioral disturbance: without behavioral disturbance Qualified Code(s): F03.90 - Unspecified dementia without behavioral disturbance Is this a current diagnosis for this admission?: YesPlan: Continue supportive care (7) Essential hypertension Is this a current diagnosis for this admission?: Yes (8) History of stroke Is this a current diagnosis for this admission?: Yes (9) Osteoarthritis Qualifiers: Osteoarthritis location: unspecified site Osteoarthritis type: unspecified Qualified Code(s): M19.90 - Unspecified osteoarthritis, unspecified site Is this a current diagnosis for this admission?: Yes (10) Warfarin-induced coagulopathy Is this a current diagnosis for this admission?: YesPlan: Resume warfarin. Patient INR is 2.12. (11) Do not resuscitate Is this a current diagnosis for this admission?: YesPlan: Discussed with patient's daughter who is power of litigation attorney associate and patient is a DO NOT RESUSCITATE. Her surrogate decision maker is her daughter Tresa Downing - Time Time Spent with patient: 25-34 minutes Medications reviewed and adjusted accordingly: Yes Anticipated discharge: Home with Homehealth, Acute Rehab Within: within 48 hours - Inpatient Certification Medical Necessity: Need For Continuous Telemetry Monitoring Post Hospital Care: D/C Layout Artist Documentation
[2016-10-02] MEDS: ERTAPENEM SODIUM 1 GM in NORMAL SALINE 50 ML IV SCH (18:22)
[2016-10-02] MEDS: SENNOSIDES/DOCUSATE 8.6-50 MG 1 EACH TABLET PO SCH (22:13)
[2016-10-03] MEDS: PROPRANOLOL HCL 10 MG TABLET PO SCH ×4 (01:46→18:58)
[2016-10-03] MEDS: METHIMAZOLE 5 MG TABLET PO SCH ×3 (01:46→18:58)
[2016-10-03] MEDS: NORMAL SALINE 1000 ML 1,000 ML IV PRN (02:49)
[2016-10-03 04:53] LABS: ABSOLUTE EOSINOPHILS # (AUTO) 0.2 10^3/uL (0.0-0.6); ABSOLUTE LYMPHOCYTES (AUTO) 0.8 10^3/uL (0.5-4.7); ABSOLUTE MONOCYTES (AUTO) 0.9 10^3/uL (0.1-1.4); ABSOLUTE NEUT (AUTO) 9.1 10^3/uL (1.7-8.2); BASOPHILS % (AUTO) 0.4 % (0-2); EOSINOPHILS % (AUTO) 1.4 % (0-6); HEMATOCRIT 30.9 % (36.0-47.0); HEMOGLOBIN 10.8 g/dL (12.0-15.5); HGB HCT DIFFERENCE 1.5; LYMPHOCYTES % (AUTO) 7.2 % (13-45); MEAN CORPUSCULAR HEMOGLOBIN 30.9 pg (27.0-33.4); MEAN CORPUSCULAR HGB CONC 35.1 g/dL (32.0-36.0); MEAN CORPUSCULAR VOLUME 88 fl (80-97); MONOCYTES % (AUTO) 8.2 % (3-13); RED BLOOD COUNT 3.51 10^6/uL (3.72-5.28); RED CELL DISTRIBUTION WIDTH 14.3 % (11.5-14.0); SEGMENTED NEUTROPHILS % (AUTO) 82.8 % (42-78)
[2016-10-03 04:58] LABS: PROTHROMBIN TIME 22.2 SEC (11.4-15.4)
[2016-10-03 05:11] LABS: ANION GAP 9 (5-19); BLOOD UREA NITROGEN 31 mg/dL (7-20); CALCIUM 7.8 mg/dL (8.4-10.2); CARBON DIOXIDE 21 mmol/L (22-30); CHLORIDE 112 mmol/L (98-107); CREATININE RESULT 0.61 mg/dL (0.52-1.25); GLUCOSE 115 mg/dL (75-110); PHOSPHORUS 3.2 mg/dL (2.5-4.5); POTASSIUM 4.3 mmol/L (3.6-5.0); SODIUM 142.4 mmol/L (137-145)
[2016-10-03 05:18] LABS: PREALBUMIN 7.2 mg/dL (17.6-36.0)
[2016-10-03 05:26] LABS: FREE T3 5.1 pg/mL (2.77-5.27)
[2016-10-03] MEDS: LANSOPRAZOLE 30 MG TAB.RAP.DR PO SCH (05:33)
[2016-10-03] MEDS: MEGESTROL ACETATE SUSP 400 MG/10 ML UDCUP PO SCH (12:01)
[2016-10-03] MEDS: LACTOBACILLUS ACIDOPHILUS 250 MG TAB PO SCH ×2 (12:01→18:58)
[2016-10-03] MEDS: DOCUSATE SODIUM 100 MG CAPSULE PO SCH ×2 (12:01→18:58)
[2016-10-03] MEDS: DILTIAZEM HCL 180 MG CAPSULE.CR PO SCH ×2 (12:02→22:15)
[2016-10-03] MEDS: MINERAL OIL ENEMA 133 ML PR SCH ×2 (12:02→19:05)
[2016-10-03] MEDS: LIDOCAINE 5% (700 MG) TRANSDERMAL ADH..PATCH TP SCH (12:02)
[2016-10-03] MEDS: ERTAPENEM SODIUM 1 GM in NORMAL SALINE 50 ML IV SCH (18:59)
--- NOTE | 2016-10-03 19:26 | PDOC PROGRESS REPORT ---
Subjective Progress Note for:: 10/03/16 Subjective:: Patient seen earlier today on morning rounds. Patient awake and eating with her daughter at this time. She is much improved according to family and patient. Physical Exam Vital Signs: Temp Pulse Resp BP Pulse Ox 97.8 F 73 20 130/85 H 96 10/03/16 16:00 10/03/16 16:00 10/03/16 16:00 10/03/16 16:00 10/03/16 16:00 Intake & Output 10/02/16 10/03/16 10/04/16 06:59 06:59 06:59 Intake Total 670 2996 240 Output Total 500 Balance 170 2996 240 Weight 57.9 kg 58.7 kg Exam: General: Awake and answers questions appropriately, no acute respiratory distress HEENT: AT/NC, PERRL, EOMI, oropharynx is moist, pink, no scleral icterus, no conjunctival injection Neck: No JVD, trachea midline, thyromegaly Chest: Clear to auscultation bilaterally, no wheezes rhonchi or rales CV: IRR, normal S1 and S2, no murmur, rub, or gallop Abdomen: Soft, NTTP, not distended, active bowel sounds; no rebound, rigidity, or guarding Extremities: No cyanosis, clubbing or edema, Neuro: cranial nerves grossly intact Results Laboratory Results: 10/03/16 04:38 10/03/16 04:38 10/03/16 10/03/16 10/03/16 04:38 04:38 04:38 WBC 11.0 H RBC 3.51 L Hgb 10.8 L Hct 30.9 L MCV 88 MCH 30.9 MCHC 35.1 RDW 14.3 H Plt Count 196 Seg Neutrophils % 82.8 H Lymphocytes % 7.2 L Monocytes % 8.2 Eosinophils % 1.4 Basophils % 0.4 Absolute Neutrophils 9.1 H Absolute Lymphocytes 0.8 Absolute Monocytes 0.9 Absolute Eosinophils 0.2 Absolute Basophils 0.0 Sodium 142.4 Potassium 4.3 Chloride 112 H Carbon Dioxide 21 L Anion Gap 9 BUN 31 H Creatinine 0.61 Est GFR ( Amer) > 60 Est GFR (Non-Af Amer) > 60 Glucose 115 H Calcium 7.8 L Phosphorus 3.2 Magnesium 2.0 Prealbumin 7.2 L Free T4 2.18 Free T3 pg/mL 5.10 Stool Occult Blood 10/03/16 16:15 WBC RBC Hgb Hct MCV MCH MCHC RDW Plt Count Seg Neutrophils % Lymphocytes % Monocytes % Eosinophils % Basophils % Absolute Neutrophils Absolute Lymphocytes Absolute Monocytes Absolute Eosinophils Absolute Basophils Sodium Potassium Chloride Carbon Dioxide Anion Gap BUN Creatinine Est GFR ( Amer) Est GFR (Non-Af Amer) Glucose Calcium Phosphorus Magnesium Prealbumin Free T4 Free T3 pg/mL Stool Occult Blood NEGATIVE Impressions: Chest X-Ray 09/28/16 09:04 IMPRESSION: COPD. NO ACUTE RADIOGRAPHIC FINDING IN THE CHEST. Hip X-Ray 09/28/16 09:04 IMPRESSION: No acute findings. Knee X-Ray 09/28/16 10:25 IMPRESSION: NO RADIOGRAPHIC EVIDENCE OF ACUTE INJURY. Thyroid Ultrasound 09/29/16 00:00 IMPRESSION: 1. Right lobe of the thyroid gland is not visualized. 2. Extremely heterogeneous left lobe of the thyroid gland. A discrete mass is not identified. Ribs w/Chest X-Ray 09/30/16 00:00 IMPRESSION: Trace bilateral pleural effusions with bibasilar airspace disease, atelectasis versus pneumonia. Bones are profoundly osteoporotic. No displaced left rib fractures are identified. The left chest wall air or pneumothorax. Probably chronic compression deformities at T12 and L2. Pelvis CT 10/01/16 00:00 IMPRESSION: No acute displaced fracture identified. Because there is hardware and severe osteoporosis, pelvic fracture or fracture along the proximal femur could be missed. Please consider bone scan for further evaluation Venous Doppler Study 10/01/16 00:00 IMPRESSION: NO EVIDENCE OF DVT OR SVT IN THE LEFT LEG. Assessment & Plan - Diagnosis (1) Hyperthyroidism Is this a current diagnosis for this admission?: YesPlan: Patient's free T3 and free T4 improved on methimazole. Decrease methimazole for maintenance. (2) Sepsis Qualifiers: Sepsis type: Escherichia coli Qualified Code(s): A41.51 - Sepsis due to Escherichia coli [E. coli] Is this a current diagnosis for this admission?: YesPlan: Likely secondary to urinary tract infection. Patient is found to have ESBL Escherichia coli in the urine. (3) UTI (urinary tract infection) Qualifiers: Urinary tract infection type: acute cystitis Hematuria presence: without hematuria Qualified Code(s): N30.00 - Acute cystitis without hematuria Is this a current diagnosis for this admission?: YesPlan: Patient with ESBL Escherichia coli. On Invanz day #5 (4) Left leg pain Is this a current diagnosis for this admission?: Yes (5) Atrial fibrillation with RVR Is this a current diagnosis for this admission?: YesPlan: Currently rate controlled. Secondary to hyperthyroidism. Continue Inderal and have increased patient's Cardizem. Improved control today. (6) Dementia Qualifiers: Dementia type: unspecified type Dementia behavioral disturbance: without behavioral disturbance Qualified Code(s): F03.90 - Unspecified dementia without behavioral disturbance Is this a current diagnosis for this admission?: YesPlan: Continue supportive care (7) Essential hypertension Is this a current diagnosis for this admission?: Yes (8) History of stroke Is this a current diagnosis for this admission?: Yes (9) Osteoarthritis Qualifiers: Osteoarthritis location: unspecified site Osteoarthritis type: unspecified Qualified Code(s): M19.90 - Unspecified osteoarthritis, unspecified site Is this a current diagnosis for this admission?: Yes (10) Warfarin-induced coagulopathy Is this a current diagnosis for this admission?: Yes (11) Do not resuscitate Is this a current diagnosis for this admission?: Yes - Time Time Spent with patient: 25-34 minutes Medications reviewed and adjusted accordingly: Yes
[2016-10-03] MEDS: WARFARIN SODIUM 2 MG TABLET PO SCH (22:15)
[2016-10-03] MEDS: ACETAMINOPHEN 325 MG TABLET PO PRN (22:15)
[2016-10-03] MEDS: SENNOSIDES/DOCUSATE 8.6-50 MG 1 EACH TABLET PO SCH (22:16)
[2016-10-04] MEDS: PROPRANOLOL HCL 10 MG TABLET PO SCH ×4 (01:03→18:40)
[2016-10-04 05:53] LABS: ABSOLUTE BASOPHILS # (AUTO) 0.1 10^3/uL (0.0-0.2); ABSOLUTE EOSINOPHILS # (AUTO) 0.2 10^3/uL (0.0-0.6); ABSOLUTE LYMPHOCYTES (AUTO) 0.9 10^3/uL (0.5-4.7); ABSOLUTE NEUT (AUTO) 9.5 10^3/uL (1.7-8.2); BASOPHILS % (AUTO) 0.5 % (0-2); HEMATOCRIT 31.4 % (36.0-47.0); HEMOGLOBIN 10.8 g/dL (12.0-15.5); LYMPHOCYTES % (AUTO) 7.8 % (13-45); MEAN CORPUSCULAR HEMOGLOBIN 30.6 pg (27.0-33.4); MEAN CORPUSCULAR HGB CONC 34.5 g/dL (32.0-36.0); MEAN CORPUSCULAR VOLUME 89 fl (80-97); MONOCYTES % (AUTO) 8.2 % (3-13); RED BLOOD COUNT 3.53 10^6/uL (3.72-5.28); RED CELL DISTRIBUTION WIDTH 14.3 % (11.5-14.0); SEGMENTED NEUTROPHILS % (AUTO) 81.5 % (42-78); WHITE BLOOD COUNT 11.7 10^3/uL (4.0-10.5)
[2016-10-04] MEDS: LANSOPRAZOLE 30 MG TAB.RAP.DR PO SCH (06:00)
[2016-10-04] MEDS: TRAMADOL HCL 50 MG TABLET PO PRN ×2 (06:00→14:06)
[2016-10-04 06:09] LABS: ANION GAP 10 (5-19); BLOOD UREA NITROGEN 33 mg/dL (7-20); CARBON DIOXIDE 20 mmol/L (22-30); CHLORIDE 112 mmol/L (98-107); CREATININE RESULT 0.56 mg/dL (0.52-1.25); GLUCOSE 115 mg/dL (75-110); POTASSIUM 4.7 mmol/L (3.6-5.0); SODIUM 141.9 mmol/L (137-145)
[2016-10-04] MEDS: DOCUSATE SODIUM 100 MG CAPSULE PO SCH ×2 (10:07→18:30)
[2016-10-04] MEDS: LACTOBACILLUS ACIDOPHILUS 250 MG TAB PO SCH ×2 (11:37→18:40)
[2016-10-04] MEDS: MEGESTROL ACETATE SUSP 400 MG/10 ML UDCUP PO SCH (11:37)
[2016-10-04] MEDS: DILTIAZEM HCL 180 MG CAPSULE.CR PO SCH ×2 (11:37→23:28)
[2016-10-04] MEDS: LIDOCAINE 5% (700 MG) TRANSDERMAL ADH..PATCH TP SCH (11:38)
[2016-10-04] MEDS: METHIMAZOLE 5 MG TABLET PO SCH (11:40)
[2016-10-04] MEDS: MINERAL OIL ENEMA 133 ML PR SCH (11:41)
--- NOTE | 2016-10-04 17:05 | PDOC PROGRESS REPORT ---
Subjective Progress Note for:: 10/04/16 Subjective:: Patient seen earlier today on morning rounds. Patient awake and complaining of left hip pain. Physical Exam Vital Signs: Temp Pulse Resp BP Pulse Ox 98.1 F 57 L 20 128/70 H 94 10/04/16 04:00 10/04/16 04:00 10/04/16 04:00 10/04/16 04:00 10/04/16 04:00 Intake & Output 10/03/16 10/04/16 10/05/16 06:59 06:59 06:59 Intake Total 2996 440 Balance 2996 440 Weight 58.7 kg 61 kg Exam: General: Awake and answers questions appropriately, no acute respiratory distress HEENT: AT/NC, PERRL, EOMI, oropharynx is moist, pink, no scleral icterus, no conjunctival injection Neck: No JVD, trachea midline, thyromegaly Chest: Clear to auscultation bilaterally, no wheezes rhonchi or rales CV: IRR, normal S1 and S2, no murmur, rub, or gallop Abdomen: Soft, NTTP, not distended, active bowel sounds; no rebound, rigidity, or guarding Extremities: No cyanosis, clubbing or edema Neuro: cranial nerves grossly intact Psych: Normal mood and affect Results Laboratory Results: 10/04/16 05:14 10/04/16 05:14 10/03/16 10/04/16 10/04/16 16:15 05:14 05:14 WBC 11.7 H RBC 3.53 L Hgb 10.8 L Hct 31.4 L MCV 89 MCH 30.6 MCHC 34.5 RDW 14.3 H Plt Count 234 Seg Neutrophils % 81.5 H Lymphocytes % 7.8 L Monocytes % 8.2 Eosinophils % 2.0 Basophils % 0.5 Absolute Neutrophils 9.5 H Absolute Lymphocytes 0.9 Absolute Monocytes 1.0 Absolute Eosinophils 0.2 Absolute Basophils 0.1 Sodium 141.9 Potassium 4.7 Chloride 112 H Carbon Dioxide 20 L Anion Gap 10 BUN 33 H Creatinine 0.56 Est GFR ( Amer) > 60 Est GFR (Non-Af Amer) > 60 Glucose 115 H Calcium 8.0 L Stool Occult Blood NEGATIVE Impressions: Chest X-Ray 09/28/16 09:04 IMPRESSION: COPD. NO ACUTE RADIOGRAPHIC FINDING IN THE CHEST. Hip X-Ray 09/28/16 09:04 IMPRESSION: No acute findings. Knee X-Ray 09/28/16 10:25 IMPRESSION: NO RADIOGRAPHIC EVIDENCE OF ACUTE INJURY. Thyroid Ultrasound 09/29/16 00:00 IMPRESSION: 1. Right lobe of the thyroid gland is not visualized. 2. Extremely heterogeneous left lobe of the thyroid gland. A discrete mass is not identified. Ribs w/Chest X-Ray 09/30/16 00:00 IMPRESSION: Trace bilateral pleural effusions with bibasilar airspace disease, atelectasis versus pneumonia. Bones are profoundly osteoporotic. No displaced left rib fractures are identified. The left chest wall air or pneumothorax. Probably chronic compression deformities at T12 and L2. Pelvis CT 10/01/16 00:00 IMPRESSION: No acute displaced fracture identified. Because there is hardware and severe osteoporosis, pelvic fracture or fracture along the proximal femur could be missed. Please consider bone scan for further evaluation Venous Doppler Study 10/01/16 00:00 IMPRESSION: NO EVIDENCE OF DVT OR SVT IN THE LEFT LEG. Assessment & Plan - Diagnosis (1) Hyperthyroidism Is this a current diagnosis for this admission?: YesPlan: Patient's free T3 and free T4 improved on methimazole. Decrease methimazole 2.5mg po tid for maintenance. Will check a free T4 and free T3 in the a.m. (2) Sepsis Qualifiers: Sepsis type: Escherichia coli Qualified Code(s): A41.51 - Sepsis due to Escherichia coli [E. coli] Is this a current diagnosis for this admission?: YesPlan: Likely secondary to urinary tract infection. Patient is found to have ESBL Escherichia coli in the urine. (3) UTI (urinary tract infection) Qualifiers: Urinary tract infection type: acute cystitis Hematuria presence: without hematuria Qualified Code(s): N30.00 - Acute cystitis without hematuria Is this a current diagnosis for this admission?: YesPlan: Patient with ESBL Escherichia coli. On Invanz day #6/7 (4) Left leg pain Is this a current diagnosis for this admission?: YesPlan: CT of the pelvis does not reveal any acute fracture. Ultrasound reveals no DVT. 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 Have placed tramadol and Lidoderm. (5) Atrial fibrillation with RVR Is this a current diagnosis for this admission?: YesPlan: Currently rate controlled. Secondary to hyperthyroidism. Continue Inderal and Cardizem. Coumadin has been resumed. (6) Dementia Qualifiers: Dementia type: unspecified type Dementia behavioral disturbance: without behavioral disturbance Qualified Code(s): F03.90 - Unspecified dementia without behavioral disturbance Is this a current diagnosis for this admission?: Yes (7) Essential hypertension Is this a current diagnosis for this admission?: Yes (8) History of stroke Is this a current diagnosis for this admission?: Yes (9) Osteoarthritis Qualifiers: Osteoarthritis location: unspecified site Osteoarthritis type: unspecified Qualified Code(s): M19.90 - Unspecified osteoarthritis, unspecified site Is this a current diagnosis for this admission?: Yes (10) Do not resuscitate Is this a current diagnosis for this admission?: Yes
[2016-10-04] MEDS: ERTAPENEM SODIUM 1 GM in NORMAL SALINE 50 ML IV SCH (18:40)
[2016-10-04] MEDS ORDERED: METHIMAZOLE 5 MG TABLET PO SCH (22:00)
[2016-10-04] MEDS: ACETAMINOPHEN 325 MG TABLET PO PRN (23:28)
[2016-10-04] MEDS: WARFARIN SODIUM 2 MG TABLET PO SCH (23:28)
[2016-10-05] MEDS: PROPRANOLOL HCL 10 MG TABLET PO SCH ×3 (02:13→14:03)
[2016-10-05 05:38] LABS: HEMATOCRIT 33.6 % (36.0-47.0); HEMOGLOBIN 11.5 g/dL (12.0-15.5); HGB HCT DIFFERENCE 0.9; MEAN CORPUSCULAR HEMOGLOBIN 30.7 pg (27.0-33.4); MEAN CORPUSCULAR HGB CONC 34.3 g/dL (32.0-36.0); MEAN CORPUSCULAR VOLUME 90 fl (80-97); RED BLOOD COUNT 3.75 10^6/uL (3.72-5.28); RED CELL DISTRIBUTION WIDTH 14.5 % (11.5-14.0); WHITE BLOOD COUNT 12.6 10^3/uL (4.0-10.5)
[2016-10-05 05:57] LABS: ANION GAP 11 (5-19); BLOOD UREA NITROGEN 31 mg/dL (7-20); CALCIUM 8.2 mg/dL (8.4-10.2); CARBON DIOXIDE 22 mmol/L (22-30); CHLORIDE 109 mmol/L (98-107); CREATININE RESULT 0.64 mg/dL (0.52-1.25); GLUCOSE 115 mg/dL (75-110); POTASSIUM 5.3 mmol/L (3.6-5.0); SODIUM 141.7 mmol/L (137-145)
[2016-10-05 06:11] LABS: FREE T3 5.74 pg/mL (2.77-5.27)
[2016-10-05] MEDS: LANSOPRAZOLE 30 MG TAB.RAP.DR PO SCH (06:45)
[2016-10-05] MEDS: DOCUSATE SODIUM 100 MG CAPSULE PO SCH (09:07)
[2016-10-05] MEDS: LIDOCAINE 5% (700 MG) TRANSDERMAL ADH..PATCH TP SCH (09:35)
[2016-10-05] MEDS: LACTOBACILLUS ACIDOPHILUS 250 MG TAB PO SCH (09:42)
[2016-10-05] MEDS: MEGESTROL ACETATE SUSP 400 MG/10 ML UDCUP PO SCH (09:42)
[2016-10-05] MEDS: DILTIAZEM HCL 180 MG CAPSULE.CR PO SCH (09:42)
[2016-10-05] MEDS ORDERED: METHIMAZOLE 5 MG TABLET PO SCH ×3 (10:00→14:00)
[2016-10-05] MEDS ORDERED: LIDOCAINE 2% VISCOUS SOLN 20 ML UDCUP PO ONE (10:15)
[2016-10-05] MEDS ORDERED: NYSTATIN/DEXAMETH/DIPHEN SUSP 120 ML PO ONE (11:30)
[2016-10-05 13:36] LABS: APPEARANCE,URINE SLIGHTLY-CLOUDY; BILIRUBIN,URINE NEGATIVE (NEGATIVE); CALCIUM OXALATE CRYSTALS,URINE FEW /HPF; GLUCOSE, URINE NEGATIVE (NEGATIVE); KETONES,URINE NEGATIVE (NEGATIVE); LEUKOCYTE ESTERASE,URINE SMALL (NEGATIVE); NITRITE,URINE NEGATIVE (NEGATIVE); PROTEIN,URINE NEGATIVE (NEGATIVE); URINE SPECIFIC GRAVITY 1.012; UROBILINOGEN,URINE NEGATIVE mg/dL (<2.0)
[2016-10-05] MEDS ORDERED: NYSTATIN/DEXAMETH/DIPHEN SUSP 120 ML PO SCH (14:00)
[2016-10-05] MEDS ORDERED: ERTAPENEM SODIUM 1 GM in NORMAL SALINE 50 ML IV ONE (14:30)
[2016-10-05] MEDS ORDERED: METRONIDAZOLE 500 MG/NS RTU 100 ML IV ONE (14:30)
[2016-10-05 15:56] VITALS: BP 128/99
--- NOTE | 2016-10-05 16:59 | PDOC DISCHARGE SUMMARY ---
General - Admit/Disc Date/PCP Admission Date/Primary Care Provider: 09/28/16 15:48 KEREN RAMSEY MD Discharge Date: 10/05/16 - Discharge Diagnosis (1) Sepsis Is this a current diagnosis for this admission?: Yes (2) Hyperthyroidism Is this a current diagnosis for this admission?: Yes (3) UTI (urinary tract infection) Is this a current diagnosis for this admission?: Yes (4) C. difficile colitis Is this a current diagnosis for this admission?: Yes (5) Left leg pain Is this a current diagnosis for this admission?: Yes (6) Atrial fibrillation with RVR Is this a current diagnosis for this admission?: Yes (7) Dementia Is this a current diagnosis for this admission?: Yes (8) Essential hypertension Is this a current diagnosis for this admission?: Yes (9) History of stroke Is this a current diagnosis for this admission?: Yes (10) Osteoarthritis Is this a current diagnosis for this admission?: Yes (11) Do not resuscitate Is this a current diagnosis for this admission?: Yes - Additional Information Resuscitation Status: Full Code Discharge Diet: Regular Discharge Activity: Activity As Tolerated, Balance Activity w/Rest Home Medications: Diltiazem HCl [Cartia Xt] 180 mg PO DAILY 09/28/16 Warfarin Sodium [Coumadin 1 mg Tablet] 1.5 mg PO TUTHSA@219909/28/16 Warfarin Sodium [Coumadin 1 mg Tablet] 2 mg PO SUMOWEFR@219909/28/16 Docusate Sodium [Colace 100 mg Capsule] 100 mg PO BID capsule 10/05/16 Methimazole [Tapazole 5 mg Tablet] 5 mg PO Q8 #30 tablet 10/05/16 Metronidazole [Flagyl 500 mg Tablet] 500 mg PO TID #30 tablet 10/05/16 Propranolol HCl [Inderal 10 mg Tablet] 10 mg PO Q6 #120 tablet 10/05/16 Tramadol HCl [Ultram 50 mg Tablet] 25 mg PO Q4HP PRN #10 tablet 10/05/16 History of Present Illness History of Present Illness: OPAL MAE is a 89 year old female with history of advanced dementia, atrial fibrillation, frequent urinary tract infection, ESBL Escherichia coli urinary tract infection, brought to the hospital as she was found on the floor at home by her family. Due to underlying advanced dementia, the patient is unable to provide history. Information unobtainable from the patient. Information obtained, from her family, from the emergency room record, from old records in the hospital. Patient apparently was being brought by the family with their trips. They do not live in town and is in an RV. They were in [facility], apparently she was found on the floor in the RV without any loss in consciousness. Reportedly the patient is complaining of pain and therefore the patient was brought to the hospital. In the emergency room, the patient's heart rate was elevated, urinalysis was abnormal, lactic acid mildly elevated, she is hypothermic with a temperature of 96.2F The patient was given intravenous fluids, intravenous Invanz was given and patient was referred for admission. No other information available at this time. Hospital Course Hospital Course: Patient was placed on IV fluids and Invanz with improvement of her sepsis. Patient was found to have ESBL Escherichia coli which was sensitive to Invanz. Patient was also found to have A. fib with RVR, which was treated with Cardizem and metoprolol. Patient did have a prior history of atrial fibrillation. This was thought to be secondary to sepsis however in the course of evaluation patient was found to be hyperthyroid. Patient is noted to have a goiter on the left which was ultrasounded on 10/09/2016 revealing enlargement but heterogenous lobe of the thyroid. 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 Patient was treated with methimazole with improvement of her symptomatology. I did discuss this case with endocrinology from [facility] and they advised to continue the methimazole with close follow-up of her thyroid function studies. This was expressed to her family. Patient will need follow- up of her free T4 and free T3 within one week. Patient also complained of left hip pain she did receive a x-ray as well as CAT scan of her left hip. None of these showed acute fracture or dislocation. Patient improved with tramadol and Lidoderm patches. Patient received a total of 7 days of Invanz for her UTI. However, patient did have several episodes of diarrhea prior to discharge. One was sent patient was found to have C. difficile. Patient was started on Flagyl for the next 10 days. Family is advised about appropriate C. difficile care. Patient is overall stable for discharge home. Physical Exam Vital Signs: Temp Pulse Resp BP Pulse Ox 97.9 F 81 16 128/99 H 98 10/05/16 15:46 10/05/16 15:46 10/05/16 15:46 10/05/16 15:46 10/05/16 15:46 Intake & Output 10/04/16 10/05/16 10/06/16 06:59 06:59 06:59 Intake Total 440 580 Balance 440 580 Weight 61 kg 59.6 kg Exam: General: Awake and answers questions appropriately, no acute respiratory distress HEENT: AT/NC, PERRL, EOMI, oropharynx is moist, pink, no scleral icterus, no conjunctival injection Neck: No JVD, trachea midline, asymmetric thyromegaly Chest: Clear to auscultation bilaterally, no wheezes rhonchi or rales CV: IRR, normal S1 and S2, no murmur, rub, or gallop Abdomen: Soft, NTTP, not distended, active bowel sounds; no rebound, rigidity, or guarding Extremities: No cyanosis, clubbing or edema Neuro: cranial nerves grossly intact Psych: Normal mood and affect Results Laboratory Results: 10/05/16 04:53 10/05/16 04:53 10/05/16 10/05/16 10/05/16 04:53 04:53 04:53 WBC 12.6 H RBC 3.75 Hgb 11.5 L Hct 33.6 L MCV 90 MCH 30.7 MCHC 34.3 RDW 14.5 H Plt Count 279 Sodium 141.7 Potassium 5.3 H Chloride 109 H Carbon Dioxide 22 Anion Gap 11 BUN 31 H Creatinine 0.64 Est GFR ( Amer) > 60 Est GFR (Non-Af Amer) > 60 Glucose 115 H Calcium 8.2 L Free T4 2.66 H Free T3 pg/mL 5.74 H Urine Color Urine Appearance Urine pH Ur Specific [place] Urine Protein Urine Glucose (UA) Urine Ketones Urine Blood Urine Nitrite Ur Leukocyte Esterase Urine WBC (Auto) Urine RBC (Auto) 10/05/16 12:40 WBC RBC Hgb Hct MCV MCH MCHC RDW Plt Count Sodium Potassium Chloride Carbon Dioxide Anion Gap BUN Creatinine Est GFR ( Amer) Est GFR (Non-Af Amer) Glucose Calcium Free T4 Free T3 pg/mL Urine Color YELLOW Urine Appearance SLIGHTLY-CLOUDY Urine pH 6.0 Ur Specific [place] 1.012 Urine Protein NEGATIVE Urine Glucose (UA) NEGATIVE Urine Ketones NEGATIVE Urine Blood NEGATIVE Urine Nitrite NEGATIVE Ur Leukocyte Esterase SMALL H Urine WBC (Auto) 38 Urine RBC (Auto) 7 Impressions: Chest X-Ray 09/28/16 09:04 IMPRESSION: COPD. NO ACUTE RADIOGRAPHIC FINDING IN THE CHEST. Hip X-Ray 09/28/16 09:04 IMPRESSION: No acute findings. Knee X-Ray 09/28/16 10:25 IMPRESSION: NO RADIOGRAPHIC EVIDENCE OF ACUTE INJURY. Thyroid Ultrasound 09/29/16 00:00 IMPRESSION: 1. Right lobe of the thyroid gland is not visualized. 2. Extremely heterogeneous left lobe of the thyroid gland. A discrete mass is not identified. Ribs w/Chest X-Ray 09/30/16 00:00 IMPRESSION: Trace bilateral pleural effusions with bibasilar airspace disease, atelectasis versus pneumonia. Bones are profoundly osteoporotic. No displaced left rib fractures are identified. The left chest wall air or pneumothorax. Probably chronic compression deformities at T12 and L2. Pelvis CT 10/01/16 00:00 IMPRESSION: No acute displaced fracture identified. Because there is hardware and severe osteoporosis, pelvic fracture or fracture along the proximal femur could be missed. Please consider bone scan for further evaluation Venous Doppler Study 10/01/16 00:00 IMPRESSION: NO EVIDENCE OF DVT OR SVT IN THE LEFT LEG. Qualifiers PATEINT BEING DISCHARGED WITH ANY OF THE FOLLOWING DIAGNOSIS?: No Plan Time Spent: Greater than 30 Minutes
[2016-10-05] MEDS ORDERED: METRONIDAZOLE 500 MG/NS RTU 100 ML IV SCH (18:00)
== END 2016-10-05 17:51 | disposition home health service (06) | DRG 872 ==
LOC: ER 08:26 → UNDOADMIN 13:38 → EH 13:38 → 3N 15:48 → UNDOADMIN 15:48 → EH 15:48 → 3N 16:13 → UNDOADMIN 16:13 → 4S 17:15 → EH 17:15 → 3N 17:15
PROVIDERS: ADMIT Family Medicine; ATTEND Family Medicine
PROC: BG44ZZZ Ultrasonography of Thyroid Gland (ICD-10-PCS; principal; 2016-09-29)
DX: A41.51 Sepsis due to Escherichia coli [E. coli] (principal); N30.00 Acute cystitis without hematuria; D68.32 Hemorrhagic disorder due to extrinsic circulating anticoagulants; A04.7 Enterocolitis due to Clostridium difficile; Z66 Do not resuscitate; E05.90 Thyrotoxicosis, unspecified without thyrotoxic crisis or storm; Z16.12 Extended spectrum beta lactamase (ESBL) resistance; T14.8 Other injury of unspecified body region; I48.2 Chronic atrial fibrillation; I10 Essential (primary) hypertension; T45.515A Adverse effect of anticoagulants, initial encounter; M19.90 Unspecified osteoarthritis, unspecified site; F03.90 Unspecified dementia, unspecified severity, without behavioral disturbance, psychotic disturbance, mood disturbance, and anxiety; M79.605 Pain in left leg; W06.XXXA Fall from bed, initial encounter; Y93.84 Activity, sleeping; Y92.818 Other transport vehicle as the place of occurrence of the external cause; Z91.81 History of falling; Z86.73 Personal history of transient ischemic attack (TIA), and cerebral infarction without residual deficits; Z79.01 Long term (current) use of anticoagulants; Z88.2 Allergy status to sulfonamides
CPT/HCPCS: 36415; 51701; 71020; 72192; 76536; 80048; 80053; 81001; 82272; 82550; 82553; 82607; 82803; 83605; 83735; 84100; 84134; 84439; 84443; 84481; 84484; 85025; 85027; 85610; 87040; 87086; 87088; 87186; 87493; 93005; 93010; 93971; 96365; 96375; 99291; J1335; J2270; J3475; J3490; J7030; J7040; J7050